=== PATIENT | female | born 1995 | race African-American/Black ===

== ENCOUNTER 2017-07-31 18:19 | Emergency (ER) | payer MEDICAID ==
[~2017-07-31] VITALS: Ht 162.6 cm; Wt 91.6 kg
[~2017-07-31 18:19] MED LIST: CONCERTA; SLEEP MED
[2017-07-31 18:25] VITALS: BP_SYST 136
--- NOTE | 2017-07-31 18:26 | NUR ---
Patient to ER bed 06 to gown for evaluation. Side rails up.
--- NOTE | 2017-07-31 18:30 | NUR ---
Dr Knight at bedside examining patient
--- NOTE | 2017-07-31 19:05 | NUR ---
Patient in ED with c/o right elbow pain s/p fall. Reports 6/10 pain. No obvious deformity noted. Patient states she had numbness to the site. CMS present distal to injury site. Will continue to monitor.
[2017-07-31 19:55] VITALS: BP_SYST 133
--- NOTE | 2017-07-31 19:55 | NUR ---
Patient given written and verbal discharge instructions and verbalizes understanding. ER MD discussed with patient the results and treatment provided. Patient in stable condition. ID arm band removed. Rx of Motrin given. Patient educated on pain management and to follow up with PMD. Pain Scale 3/10. Opportunity for questions provided and answered.
== END 2017-07-31 19:55 | disposition home or self-care (01) ==
LOC: SED 18:19
DX: M25.521 Pain in right elbow (principal); Z98.890 Other specified postprocedural states; W01.0XXA Fall on same level from slipping, tripping and stumbling without subsequent striking against object, initial encounter; Y93.89 Activity, other specified; Y92.89 Other specified places as the place of occurrence of the external cause; Y99.8 Other external cause status
CPT/HCPCS: 81025; 99284

== ENCOUNTER 2018-09-13 20:18 | Emergency (ER) | payer MEDICAID ==
[~2018-09-13] VITALS: Ht 165.1 cm; Wt 127.0 kg
[2018-09-13 20:20] VITALS: BP_SYST 150
[2018-09-13] MEDS ORDERED: KETOROLAC TROMETHAMINE 60 MG/2 ML VIAL IM ONE (22:15)
[2018-09-13 22:45] VITALS: BP_SYST 150
== END 2018-09-13 22:45 | disposition home or self-care (01) ==
LOC: SED 20:18
DX: R56.9 Unspecified convulsions (principal); M54.16 Radiculopathy, lumbar region
CPT/HCPCS: 96372; 99283; J1885

== ENCOUNTER 2018-12-06 20:34 | Emergency (ER) | payer MEDICAID ==
[~2018-12-06] VITALS: Ht 165.1 cm; Wt 127.0 kg
[2018-12-06 20:46] VITALS: BP_SYST 143
--- NOTE | 2018-12-06 20:49 | NUR ---
Patient to ER bed 05 to gown for evaluation. Side rails up.
--- NOTE | 2018-12-06 21:30 | NUR ---
Pt C/O chest congestion and cough x 1 week. States the chest discomfort is getting progressively worse. Pt is sating at 98% on room air no signs of accessory muscle use. Denies any N/V/D or any other symptom at this time. Will continue to monitor.
--- NOTE | 2018-12-06 21:41 | NUR ---
ER Dr. Stewart at bedside examining patient.
[2018-12-06 21:57] VITALS: BP_SYST 142
--- NOTE | 2018-12-06 21:58 | NUR ---
Patient given written and verbal discharge instructions and verbalizes understanding. ER MD discussed with patient the results and treatment provided. Patient in stable condition. ID arm band removed. Rx of Azythromycin and Promethazine given. Patient educated on pain management and to follow up with PMD. Pain Scale 0/10. Opportunity for questions provided and answered. Medication side effect fact sheet provided.
== END 2018-12-06 21:57 | disposition home or self-care (01) ==
LOC: SED 20:34
DX: J02.8 Acute pharyngitis due to other specified organisms (principal); B96.89 Other specified bacterial agents as the cause of diseases classified elsewhere; R03.0 Elevated blood-pressure reading, without diagnosis of hypertension; Z88.0 Allergy status to penicillin
CPT/HCPCS: 99283

== ENCOUNTER 2018-12-20 15:01 | Inpatient (IN) | payer MEDICAID ==
[~2018-12-20] VITALS: Ht 165.1 cm; Wt 99.8 kg
[2018-12-20 15:18] VITALS: BP_SYST 143
[2018-12-20] MEDS ORDERED: LORazepam 2 MG/ML VIAL (FOR ER USE) IVP ONE ×2 (15:30→17:30)
[2018-12-20] MEDS ORDERED: levETIRAcetam 500 MG TABLET PO ONE (17:30)
[2018-12-20 17:43] LABS: BILIRUBIN,URINE NEGATIVE (NEGATIVE); BLOOD, URINE NEGATIVE (NEGATIVE); CLARITY/URINE CLOUDY (CLEAR); COLOR,URINE YELLOW (YELLOW); GLUCOSE,URINE NEGATIVE (NEGATIVE); KETONES,URINE NEGATIVE (NEGATIVE); LEUKOCYTE ESTERASE ,URINE 3+ (NEGATIVE); NITRITE, URINE NEGATIVE (NEGATIVE); PH,URINE 7.5 (5.0-8.0); PROTEIN URINE 1+ (NEGATIVE); UROBILINOGEN,URINE 0.2 (0.2-1.0)
[2018-12-20] MEDS ORDERED: LEVE1000 PO (17:51)
[2018-12-20] MEDS ORDERED: [UNRECOGNIZED DRUG - OTHER] PO (17:51)
[2018-12-20 17:57] LABS: INR 0.9 (0.8-1.2); PROTHROMBIN TIME 9.3 SECS (9.5-12.5)
[2018-12-20 17:58] LABS: BACTERIA,URINE MODERATE /HPF (None Seen); RBC,URINE 0-3 /HPF (0-3); WBC,URINE 20-50 /HPF (0-3); YEAST,URINE Few /HPF (None Seen)
[2018-12-20 17:59] LABS: TRICHOMONAS,URINE Few /HPF (None Seen)
[2018-12-20 18:08] LABS: ANION GAP 8 (5-15); CHLORIDE 105 mmol/L (98-107); CREATININE 0.75 mg/dL (0.55-1.30); GFR AFRICAN AMERICAN 124 mL/min (>90); GLUCOSE 122 mg/dL (70-99); POTASSIUM 4.1 mmol/L (3.5-5.1); SODIUM SERUM 138 mmol/L (136-145); UREA NITROGEN, BLOOD 9 mg/dL (8-21)
[2018-12-20 18:13] LABS: ALANINE AMINOTRANSFERASE 32 U/L (12-78); ALBUMIN 3.4 g/dL (3.4-4.8); ALCOHOL, BLOOD < 3 mg/dL (<10); ASPARTATE AMINOTRANSFERASE 18 U/L (10-37); TOTAL BILIRUBIN 0.2 mg/dL (0.0-1.0)
[2018-12-20 18:26] LABS: FREE T4 (FREE THYROXINE) 0.9 ng/dl (0.8-1.5)
[2018-12-20 18:28] LABS: BASOPHILS # (AUTO) 0.1 K/uL (0.0-0.2); BASOPHILS % (AUTO) 0.5 % (0.0-2.0); EOSINOPHILS # (AUTO) 0.3 K/uL (0.0-0.4); EOSINOPHILS % (AUTO) 2.8 % (0.0-4.0); HEMATOCRIT 37.6 % (36-48); HEMOGLOBIN 12.5 g/dL (12.0-16.0); LYMPHOCYTES # (AUTO) 2.1 K/uL (1.0-5.5); LYMPHOCYTES % (AUTO) 19.3 % (20.5-51.5); MEAN CORPUSCULAR HEMOGLOBIN 29 pg (27-31); MEAN CORPUSCULAR HGB CONC 33 % (32-36); MEAN CORPUSCULAR VOLUME 86 fL (79.0-98.0); MONOCYTES # (AUTO) 0.6 K/uL (0.0-1.0); MONOCYTES % (AUTO) 5.7 % (1.7-9.3); NEUTROPHILS # (AUTO) 7.7 K/uL (1.8-7.7); NEUTROPHILS % (AUTO) 71.7 % (40.0-70.0); PLATELET COUNT (AUTO) 299 K/uL (130-430); RED CELL DISTRIBUTION WIDTH 14.6 % (9.0-15.0); WHITE BLOOD COUNT (AUTO) 10.8 K/uL (4.8-10.8)
[2018-12-20 18:33] LABS: BARBITURATE, URINE NEGATIVE (NEG <=200); BENZODIAZEPINE, URINE NEGATIVE (NEG <=150); CANNABINOID, URINE POSITIVE (NEG <=50); COCAINE, URINE NEGATIVE (NEG <=150); METHAMPHETAMINES SCREEN,URINE NEGATIVE (NEG <=500); OPIATE, URINE NEGATIVE (NEG <=100); PHENCYCLIDINE SCREEN,URINE NEGATIVE (NEG <=25); UR TRICYCLIC ANTIDEPRESSANTS NEGATIVE (NEG <=300); URINE AMPHETAMINE NEGATIVE (NEG <=500); URINE METHADONE NEGATIVE (NEG <=200); URINE OXYCODONE SCREEN NEGATIVE (NEG <=100); URINE PROPOXYPHENE SCREEN NEGATIVE (NEG <=300)
[2018-12-20] MEDS ORDERED: PARLODEL PO ONE (19:00)
[2018-12-20] MEDS: KCL 20 mEq in D5/0.45NS 1000mL 1,000 ML IV SCH (19:52)
[2018-12-20 20:00] VITALS: BP_SYST 120
[2018-12-20 20:01] VITALS: BP_SYST 120
[2018-12-20] MEDS: levETIRAcetam 500 MG TABLET PO SCH (20:58)
[2018-12-20 21:00] VITALS: BP_SYST 142
[2018-12-20 22:00] VITALS: BP_SYST 116
[2018-12-20 23:00] VITALS: BP_SYST 108
[2018-12-21] VITALS (18 sets, daily range): BP systolic 94–138
[2018-12-21] MEDS: KCL 20 mEq in D5/0.45NS 1000mL 1,000 ML IV SCH ×2 (03:38→12:30)
[2018-12-21 06:49] LABS: BASOPHILS % (AUTO) 0.2 % (0.0-2.0); EOSINOPHILS # (AUTO) 0.3 K/uL (0.0-0.4); EOSINOPHILS % (AUTO) 3.4 % (0.0-4.0); HEMATOCRIT 37.3 % (36-48); HEMOGLOBIN 12.3 g/dL (12.0-16.0); LYMPHOCYTES # (AUTO) 2.3 K/uL (1.0-5.5); LYMPHOCYTES % (AUTO) 26.4 % (20.5-51.5); MEAN CORPUSCULAR HEMOGLOBIN 29 pg (27-31); MEAN CORPUSCULAR HGB CONC 33 % (32-36); MEAN CORPUSCULAR VOLUME 86 fL (79.0-98.0); MONOCYTES # (AUTO) 0.6 K/uL (0.0-1.0); MONOCYTES % (AUTO) 6.4 % (1.7-9.3); NEUTROPHILS # (AUTO) 5.5 K/uL (1.8-7.7); NEUTROPHILS % (AUTO) 63.6 % (40.0-70.0); PLATELET COUNT (AUTO) 303 K/uL (130-430); RED BLOOD CELL COUNT(AUTO) 4.33 MIL/uL (4.2-6.2); RED CELL DISTRIBUTION WIDTH 14.4 % (9.0-15.0); WHITE BLOOD COUNT (AUTO) 8.6 K/uL (4.8-10.8)
[2018-12-21 06:57] LABS: CREATININE 0.8 mg/dL (0.55-1.30); POTASSIUM 4.2 mmol/L (3.5-5.1)
[2018-12-21 07:04] LABS: CALCIUM 8.7 mg/dL (8.4-11.0)
[2018-12-21] MEDS: levETIRAcetam 500 MG TABLET PO SCH ×2 (09:14→21:50)
[2018-12-21] MEDS: PARLODEL PO SCH (09:15)
[2018-12-21] MEDS ORDERED: guaiFENesin 200 MG/CODEINE 20 MG/ 10 ML UDC PO PRN (15:45)
[2018-12-21] MEDS: ONDANSETRON HCL 4 MG/2 ML VIAL IVP PRN (16:19)
[2018-12-22] MEDS: KCL 20 mEq in D5/0.45NS 1000mL 1,000 ML IV SCH ×3 (01:48→22:04)
[2018-12-22 07:53] VITALS: BP_SYST 107
[2018-12-22] MEDS: LORazepam 2 MG/ML VIAL IVP PRN (08:11)
[2018-12-22 08:12] VITALS: BP_SYST 99
[2018-12-22] MEDS: levETIRAcetam 500 MG TABLET PO SCH ×2 (10:03→22:03)
[2018-12-22] MEDS: PARLODEL PO SCH (10:04)
[2018-12-22 11:30] VITALS: BP_SYST 96
[2018-12-22 16:03] VITALS: BP_SYST 90
[2018-12-22 20:00] VITALS: BP_SYST 98
[2018-12-22] MEDS: ONDANSETRON HCL 4 MG/2 ML VIAL IVP PRN (20:11)
[2018-12-23] VITALS (7 sets, daily range): BP systolic 90–130
[2018-12-23] MEDS: KCL 20 mEq in D5/0.45NS 1000mL 1,000 ML IV SCH ×2 (05:45→09:25)
[2018-12-23 07:07] LABS: BASOPHILS # (AUTO) 0.1 K/uL (0.0-0.2); BASOPHILS % (AUTO) 0.6 % (0.0-2.0); EOSINOPHILS # (AUTO) 0.5 K/uL (0.0-0.4); EOSINOPHILS % (AUTO) 4.3 % (0.0-4.0); HEMATOCRIT 36.3 % (36-48); HEMOGLOBIN 11.8 g/dL (12.0-16.0); LYMPHOCYTES # (AUTO) 2.7 K/uL (1.0-5.5); LYMPHOCYTES % (AUTO) 24.1 % (20.5-51.5); MEAN CORPUSCULAR HEMOGLOBIN 28 pg (27-31); MEAN CORPUSCULAR HGB CONC 33 % (32-36); MEAN CORPUSCULAR VOLUME 87 fL (79.0-98.0); MONOCYTES # (AUTO) 0.5 K/uL (0.0-1.0); MONOCYTES % (AUTO) 4.1 % (1.7-9.3); NEUTROPHILS # (AUTO) 7.6 K/uL (1.8-7.7); NEUTROPHILS % (AUTO) 66.9 % (40.0-70.0); PLATELET COUNT (AUTO) 288 K/uL (130-430); RED BLOOD CELL COUNT(AUTO) 4.18 MIL/uL (4.2-6.2); RED CELL DISTRIBUTION WIDTH 14.1 % (9.0-15.0); WHITE BLOOD COUNT (AUTO) 11.3 K/uL (4.8-10.8)
[2018-12-23 07:09] LABS: ALBUMIN 2.9 g/dL (3.4-4.8); CREATININE 0.81 mg/dL (0.55-1.30); POTASSIUM 4.5 mmol/L (3.5-5.1); TOTAL BILIRUBIN 0.1 mg/dL (0.0-1.0)
[2018-12-23] MEDS: PARLODEL PO SCH (09:26)
[2018-12-23] MEDS: levETIRAcetam 500 MG TABLET PO SCH ×2 (09:26→22:04)
[2018-12-23] MEDS: ONDANSETRON HCL 4 MG/2 ML VIAL IVP PRN (13:57)
[2018-12-23] MEDS: LORazepam 2 MG/ML VIAL IVP PRN (15:18)
[2018-12-24 01:23] VITALS: BP_SYST 110
[2018-12-24] MEDS: KCL 20 mEq in D5/0.45NS 1000mL 1,000 ML IV SCH ×2 (01:45→11:09)
[2018-12-24 08:11] VITALS: BP_SYST 92
[2018-12-24] MEDS: levETIRAcetam 500 MG TABLET PO SCH (08:23)
[2018-12-24] MEDS: PARLODEL PO SCH (08:24)
[2018-12-24] MEDS ORDERED: GADOPENTETATE DIMEGLUMINE 15 ML VIAL IV ONE (09:46)
[2018-12-24 12:51] VITALS: BP_SYST 104
[2018-12-24] MEDS: LORazepam 2 MG/ML VIAL IVP PRN (15:28)
[2018-12-24 16:24] VITALS: BP_SYST 116
[2018-12-24] MEDS ORDERED: LEVE500T53 PO (16:24)
[2018-12-24] MEDS ORDERED: LEVE1000 PO (16:31)
[2018-12-24 16:52] VITALS: BP_SYST 116
== END 2018-12-24 16:55 | disposition home or self-care (01) | DRG 53 ==
LOC: SED 15:01 → SIC 17:45 → STU 12-21 20:48
PROVIDERS: ADMIT Family Medicine; ATTEND Family Medicine
DX: G40.901 Epilepsy, unspecified, not intractable, with status epilepticus (principal); E66.9 Obesity, unspecified; N39.0 Urinary tract infection, site not specified; Z88.0 Allergy status to penicillin; Z68.36 Body mass index [BMI] 36.0-36.9, adult
CPT/HCPCS: 36415; 70450-TC; 70553; 80048; 80053; 80307; 81000-TC; 81025; 82140-TC; 82542; 83605; 83735-TC; 83880; 84439; 84484; 85025; 85610-TC; 87040-TC; 87081; 87086; 93005; 95816; 96374; 96375; 99285; A9579; G0378; G0482; J1956; J2060; J2405

== ENCOUNTER 2020-09-17 14:44 | Emergency (ER) | payer MEDICAID ==
[~2020-09-17] VITALS: Ht 165.1 cm; Wt 104.3 kg
[2020-09-17 14:44] VITALS: BP_SYST 132
[~2020-09-17 14:44] MED LIST changes: -CONCERTA; +LEVE1000 PO; -SLEEP MED; +[UNRECOGNIZED DRUG - OTHER] PO
--- NOTE | 2020-09-17 14:44 | NUR ---
BROUGHT BACK TO BED #6 AND TRIAGED. REPORT GIVEN TO LEATHA
--- NOTE | 2020-09-17 15:05 | NUR ---
DR THOMAS AT BEDSIDE FOR EVALUATION
--- NOTE | 2020-09-17 15:10 | NUR ---
Pt with complaints of dizziness x3days. 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 NO pain noted, VSS, stable gait, no blurred vision.
[2020-09-17] MEDS ORDERED: TRAM50TA2 PO (15:11)
[2020-09-17 15:24] VITALS: BP_SYST 132
--- NOTE | 2020-09-17 15:28 | NUR ---
Patient given written and verbal discharge instructions and verbalizes understanding. ER MD discussed with patient the results and treatment provided. Patient in stable condition. ID arm band removed. Rx of Tramadol given. Patient educated on pain management and to follow up with PMD. Pain Scale 3. Opportunity for questions provided and answered. Medication side effect fact sheet provided.
== END 2020-09-17 15:28 | disposition home or self-care (01) ==
LOC: SED 14:44
DX: G43.901 Migraine, unspecified, not intractable, with status migrainosus (principal)
CPT/HCPCS: 99283

== ENCOUNTER 2020-10-17 12:56 | Emergency (ER) | payer MEDICAID ==
[~2020-10-17] VITALS: Ht 165.1 cm; Wt 97.5 kg
[2020-10-17 12:56] VITALS: BP_SYST 121
[~2020-10-17 12:56] MED LIST changes: +TRAM50TA2 PO
[2020-10-17] MEDS ORDERED: ALPRAZolam 0.25 MG TABLET PO ONE (13:15)
[2020-10-17] MEDS ORDERED: ALPR0.5T PO (13:59)
[2020-10-17 14:04] VITALS: BP_SYST 134
== END 2020-10-17 14:04 | disposition home or self-care (01) ==
LOC: SED 12:56
DX: F41.9 Anxiety disorder, unspecified (principal); Z79.899 Other long term (current) drug therapy; Z88.0 Allergy status to penicillin
CPT/HCPCS: 71045; 93005; 99283

== ENCOUNTER 2021-01-01 15:08 | Emergency (ER) | payer MEDICAID ==
[~2021-01-01] VITALS: Ht 165.1 cm; Wt 90.7 kg
[~2021-01-01 15:08] MED LIST changes: +ALPR0.5T PO
[2021-01-01 15:20] VITALS: BP_SYST 146
--- NOTE | 2021-01-01 15:20 | NUR ---
PT TO [place] [id number] FOR EVALUATION. REPORT GIVEN TO CLAUDY SEVERINO WHO WILL ASSUME CARE.
--- NOTE | 2021-01-01 15:25 | NUR ---
Pt walked in to ER with c/o right knee pain and swelling, unable to remember if she fell or not. Pain 7/10, swelling noted. V/S stable, no acute distress noted.
--- NOTE | 2021-01-01 15:30 | NUR ---
ER Dr. Oviedo at bedside examining patient.
--- NOTE | 2021-01-01 15:47 | NUR ---
Radiology at bedside for knee x-ray
[2021-01-01 15:58] LABS: BASOPHILS # (AUTO) 0.1 K/uL (0.0-0.2); BASOPHILS % (AUTO) 0.9 % (0.0-2.0); EOSINOPHILS # (AUTO) 0.3 K/uL (0.0-0.4); EOSINOPHILS % (AUTO) 2.9 % (0.0-4.0); HEMATOCRIT 38.7 % (36-48); HEMOGLOBIN 12.7 g/dL (12.0-16.0); LYMPHOCYTES # (AUTO) 2.5 K/uL (1.0-5.5); MEAN CORPUSCULAR HEMOGLOBIN 29 pg (27-31); MEAN CORPUSCULAR HGB CONC 33 % (32-36); MEAN CORPUSCULAR VOLUME 88 fL (79.0-98.0); MONOCYTES # (AUTO) 0.7 K/uL (0.0-1.0); MONOCYTES % (AUTO) 6.8 % (1.7-9.3); NEUTROPHILS # (AUTO) 6.8 K/uL (1.8-7.7); NEUTROPHILS % (AUTO) 65.4 % (40.0-70.0); PLATELET COUNT (AUTO) 346 K/uL (130-430); RED BLOOD CELL COUNT(AUTO) 4.39 MIL/uL (4.2-6.2); RED CELL DISTRIBUTION WIDTH 14.5 % (9.0-15.0); WHITE BLOOD COUNT (AUTO) 10.4 K/uL (4.8-10.8)
[2021-01-01] MEDS ORDERED: CLOT15CR5 TP (16:21)
[2021-01-01 16:40] LABS: ERYTHROCYTE SEDIMENTATION RATE 10 MM/HR (0-20)
[2021-01-01 16:44] LABS: CALCIUM 9.5 mg/dL (8.4-11.0); CREATININE 0.91 mg/dL (0.55-1.30); POTASSIUM 4.4 mmol/L (3.5-5.1)
[2021-01-01 16:45] LABS: ALBUMIN 3.7 g/dL (3.4-4.8); TOTAL BILIRUBIN 0.2 mg/dL (0.0-1.0); URIC ACID 4.7 mg/dL (2.4-7.0)
[2021-01-01 16:46] LABS: C-REACTIVE PROTEIN QUANT 0.3 mg/dL (0-0.5)
[2021-01-01 16:51] VITALS: BP_SYST 146
--- NOTE | 2021-01-01 16:51 | NUR ---
Patient given written and verbal discharge instructions and verbalizes understanding. ER MD discussed with patient the results and treatment provided. Patient in stable condition. ID arm band removed. Patient educated on pain management and to follow up with PMD. Pain Scale 0. Opportunity for questions provided and answered. Medication side effect fact sheet provided.
== END 2021-01-01 16:51 | disposition home or self-care (01) ==
LOC: SED 15:08
DX: S83.91XA Sprain of unspecified site of right knee, initial encounter (principal); Z88.0 Allergy status to penicillin; Z79.899 Other long term (current) drug therapy; X50.0XXA Overexertion from strenuous movement or load, initial encounter; Y93.89 Activity, other specified; Y92.89 Other specified places as the place of occurrence of the external cause; Y99.8 Other external cause status
CPT/HCPCS: 36415; 73560-TC; 80053; 84550; 84703; 85025; 85651-TC; 86140; 99284